=== PATIENT | male | born 1965 | race Caucasian/White ===

== ENCOUNTER 2024-09-21 21:22 | Emergency (ER) | payer SELFPAY ==
[2024-09-21 21:23] VITALS: BP 168/121
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
[2024-09-22 01:27] VITALS: BP 170/122
== END 2024-09-22 01:35 | disposition home or self-care (01) ==
LOC: EMR 21:22
PROVIDERS: EMERGENCY PHYSICIAN Emergency Medicine; FAMILY PHYSICIAN Family Medicine
DX: S09.90XA Unspecified injury of head, initial encounter (principal); V49.40XA Driver injured in collision with unspecified motor vehicles in traffic accident, initial encounter; I10 Essential (primary) hypertension
CPT/HCPCS: 99284; 70450